=== PATIENT | female | born 1940 | race Caucasian/White ===

== ENCOUNTER 2017-01-26 08:15 | Outpatient (CLI) | payer MEDICARE, BC ==
[2017-01-26 19:45] LABS: BASOPHILS # (AUTO) 0.1 10^3/uL (0.0-0.1); BASOPHILS % (AUTO) 1.8 %; EOSINOPHILS # (AUTO) 0.2 10^3/uL (0.0-0.7); EOSINOPHILS % (AUTO) 3.7 %; HCT - HEMATOCRIT 39.7 % (37.0-47.0); HGB - HEMOGLOBIN 13.3 g/dL (12.0-16.0); LYMPHOCYTES # (AUTO) 1.7 10^3/uL (1.5-3.5); LYMPHOCYTES % (AUTO) 27.8 %; MEAN CORPUSCULAR HEMOGLOBIN 31.7 pg (27.0-31.0); MEAN CORPUSCULAR HGB CONC 33.4 g/dL (32.0-36.0); MEAN PLATELET VOLUME 8.9 fL (7.9-10.8); MONOCYTES # (AUTO) 0.5 10^3/uL (0.0-1.0); MONOCYTES % (AUTO) 7.7 %; NEUTROPHILS # (AUTO) 3.5 10^3/uL (1.5-6.6); NUCLEATED RED BLOOD CELLS AUTO 0.1 /100WBC; RED BLOOD COUNT 4.18 10^6/uL (4.20-5.40); RED CELL DISTRIBUTION WIDTH 12.8 % (12.0-15.0)
[2017-01-26 20:03] LABS: ALBUMIN/GLOBULIN RATIO 1.4 (1.0-2.2); BILIRUBIN,TOTAL 0.8 mg/dL (0.2-1.0); BUN - BLOOD UREA NITROGEN 17 mg/dL (6-20); CARBON DIOXIDE - CO2 28 mmol/L (21-32); CHLORIDE 101 mmol/L (101-111); CHOL/HDL RATIO 4.1 (<4.4); CHOLESTEROL 199 mg/dL; CREATININE 0.8 mg/dL (0.4-1.0); GFR - MDRD 69 (>89); GLUCOSE 87 mg/dL (70-100); HDL CHOLESTEROL 49 mg/dL; LDL/HDL RATIO 2.7 (<4.4); SODIUM 137 mmol/L (135-145); TOTAL PROTEIN 6.7 g/dL (6.7-8.2); TRIGLYCERIDES 99 mg/dL; VLDL CHOLESTEROL 20 mg/dL
== END 2017-01-26 08:16 | disposition home or self-care (01) ==
LOC: LAB.F 08:15
PROVIDERS: ATTEND Family Medicine
DX: I10 Essential (primary) hypertension (principal)
CPT/HCPCS: 36415; 80053; 80061; 82306; 84443; 85025

== ENCOUNTER 2017-02-02 10:57 | Outpatient (CLI) | payer MEDICARE, BC ==
--- NOTE | 2017-02-03 10:28 | Mammography Report ---
DIGITAL BILATERAL SCREENING MAMMOGRAM: 02/02/2017 CLINICAL HISTORY: A 76-year-old female in for routine screening mammogram. Patient has no family hi story of breast cancer. Patient did have some breast surgeries. She had two biopsies in . COMPARISON: 05/02/2008, 05/03/2009, 05/23/2010, 03/24/2013, 09/04/2014 TECHNIQUE: Craniocaudad and oblique lateral views of each breast were obtained with [employer] digital mammography. FINDINGS: Breasts are almost entirely composed of fat. No significant clusters of calcification are seen. No significant masses are noted. No change is seen. IMPRESSION: BREASTS APPEAR RADIOGRAPHICALLY BENIGN. BIRADS CATEGORY 1 - NEGATIVE. RECOMMENDATIONS: Annual bilateral screening mammography. STANDARD QUALIFYING STATEMENTS 1. This examination was reviewed with the aid of Computer-Aided Detection (CAD). 2. A negative or benign imaging report should not delay biopsy if clinically suspicious findings are present. Consider surgical consultation if warranted. More than 5% of cancers are not identified by i maging. 3. Dense breasts may obscure an underlying neoplasm. JOB #: [id number] EXT JOB #:[id number]
== END 2017-02-02 10:58 | disposition home or self-care (01) ==
LOC: DI.S 10:57
PROVIDERS: ATTEND Family Medicine
DX: Z12.31 Encounter for screening mammogram for malignant neoplasm of breast (principal)
CPT/HCPCS: 77067

== ENCOUNTER 2018-02-11 09:10 | Outpatient (CLI) | payer MEDICARE, BC ==
[2018-02-11 17:34] LABS: BASOPHILS # (AUTO) 0.1 10^3/uL (0.0-0.1); BASOPHILS % (AUTO) 1.9 %; EOSINOPHILS # (AUTO) 0.1 10^3/uL (0.0-0.7); EOSINOPHILS % (AUTO) 3.3 %; HGB - HEMOGLOBIN 13.4 g/dL (12.0-16.0); LYMPHOCYTES # (AUTO) 1.5 10^3/uL (1.5-3.5); LYMPHOCYTES % (AUTO) 33.6 %; MEAN CORPUSCULAR HEMOGLOBIN 31.8 pg (27.0-31.0); MEAN CORPUSCULAR HGB CONC 32.7 g/dL (32.0-36.0); MEAN CORPUSCULAR VOLUME 97.3 fL (81.0-99.0); MEAN PLATELET VOLUME 9.4 fL (7.9-10.8); MONOCYTES # (AUTO) 0.4 10^3/uL (0.0-1.0); MONOCYTES % (AUTO) 8.7 %; NEUTROPHILS # (AUTO) 2.3 10^3/uL (1.5-6.6); NEUTROPHILS % (AUTO) 52.5 %; PLT - PLATELET COUNT 206 10^3/uL (130-450); RED BLOOD COUNT 4.21 10^6/uL (4.20-5.40); RED CELL DISTRIBUTION WIDTH 13.5 % (12.0-15.0); WHITE BLOOD COUNT 4.4 x10^3/uL (4.8-10.8)
[2018-02-11 18:11] LABS: ALBUMIN 3.9 g/dL (3.2-5.5); ALBUMIN/GLOBULIN RATIO 1.2 (1.0-2.2); ALKALINE PHOSPHATASE 56 IU/L (42-121); ALT ALANINE AMINOTRANSFERASE 18 IU/L (10-60); AST ASPARTATE AMINOTRANSFERASE 24 IU/L (10-42); BUN - BLOOD UREA NITROGEN 22 mg/dL (6-20); CALCIUM 9.4 mg/dL (8.5-10.3); CARBON DIOXIDE - CO2 29 mmol/L (21-32); CHLORIDE 103 mmol/L (101-111); CHOL/HDL RATIO 3.7 (<4.4); CHOLESTEROL 208 mg/dL; CREATININE 0.8 mg/dL (0.4-1.0); GFR - MDRD 69 (>89); GLUCOSE 90 mg/dL (70-100); HDL CHOLESTEROL 56 mg/dL; LDL CHOLESTEROL,CALCULATED 138 mg/dL; LDL/HDL RATIO 2.5 (<4.4); SODIUM 140 mmol/L (135-145); TOTAL PROTEIN 7.1 g/dL (6.7-8.2); VLDL CHOLESTEROL 14 mg/dL
== END 2018-02-11 09:11 | disposition home or self-care (01) ==
LOC: LAB.F 09:10
PROVIDERS: ATTEND Family Medicine
DX: I10 Essential (primary) hypertension (principal); E78.5 Hyperlipidemia, unspecified; N39.0 Urinary tract infection, site not specified
CPT/HCPCS: 36415; 80053; 80061; 83721; 84443; 85025

== ENCOUNTER 2018-04-12 08:00 | Outpatient (CLI) | payer MEDICARE, BC ==
[2018-04-12 18:27] LABS: CREATININE 0.8 mg/dL (0.4-1.0)
== END 2018-04-12 08:01 | disposition home or self-care (01) ==
LOC: LAB.F 08:00
PROVIDERS: ATTEND Physician Assistant Medical
DX: B35.1 Tinea unguium (principal); Z79.899 Other long term (current) drug therapy
CPT/HCPCS: 36415; 82565; 84450; 84460

== ENCOUNTER 2018-05-26 11:37 | Outpatient (CLI) | payer MEDICARE, BC ==
[2018-05-26 18:04] LABS: CREATININE 0.8 mg/dL (0.4-1.0)
== END 2018-05-26 11:38 | disposition home or self-care (01) ==
LOC: LAB.F 11:37
PROVIDERS: ATTEND Physician Assistant Medical
DX: B35.1 Tinea unguium (principal); Z79.899 Other long term (current) drug therapy
CPT/HCPCS: 36415; 82565; 84450; 84460

== ENCOUNTER 2018-07-30 09:59 | Outpatient (CLI) | payer MEDICARE, BC ==
[2018-07-30 18:18] LABS: CREATININE 0.8 mg/dL (0.4-1.0)
== END 2018-07-30 10:00 | disposition home or self-care (01) ==
LOC: LAB.F 09:59
PROVIDERS: ATTEND Physician Assistant Medical
DX: B35.1 Tinea unguium (principal); Z79.899 Other long term (current) drug therapy
CPT/HCPCS: 36415; 82565; 84450; 84460

== ENCOUNTER 2019-01-19 08:34 | Outpatient (CLI) | payer MEDICARE, BC ==
[2019-01-19 17:52] LABS: BASOPHILS # (AUTO) 0.1 10^3/uL (0.0-0.1); BASOPHILS % (AUTO) 1.2 %; EOSINOPHILS # (AUTO) 0.2 10^3/uL (0.0-0.7); EOSINOPHILS % (AUTO) 3.9 %; HGB - HEMOGLOBIN 13.3 g/dL (12.0-16.0); LYMPHOCYTES # (AUTO) 1.5 10^3/uL (1.5-3.5); LYMPHOCYTES % (AUTO) 25.7 %; MEAN CORPUSCULAR HEMOGLOBIN 31.9 pg (27.0-31.0); MEAN CORPUSCULAR HGB CONC 32.4 g/dL (32.0-36.0); MEAN CORPUSCULAR VOLUME 98.6 fL (81.0-99.0); MEAN PLATELET VOLUME 11.1 fL (7.9-10.8); MONOCYTES # (AUTO) 0.5 10^3/uL (0.0-1.0); MONOCYTES % (AUTO) 9.5 %; NEUTROPHILS # (AUTO) 3.4 10^3/uL (1.5-6.6); NEUTROPHILS % (AUTO) 59.3 %; PLT - PLATELET COUNT 227 10^3/uL (130-450); RED BLOOD COUNT 4.17 10^6/uL (4.20-5.40); RED CELL DISTRIBUTION WIDTH 12.9 % (12.0-15.0); WHITE BLOOD COUNT 5.7 x10^3/uL (4.8-10.8)
[2019-01-19 18:26] LABS: ALBUMIN/GLOBULIN RATIO 1.3 (1.0-2.2); ALKALINE PHOSPHATASE 57 IU/L (42-121); ALT ALANINE AMINOTRANSFERASE 15 IU/L (10-60); AST ASPARTATE AMINOTRANSFERASE 19 IU/L (10-42); BILIRUBIN,TOTAL 0.9 mg/dL (0.2-1.0); BUN - BLOOD UREA NITROGEN 21 mg/dL (6-20); CALCIUM 9.1 mg/dL (8.5-10.3); CARBON DIOXIDE - CO2 28 mmol/L (21-32); CHLORIDE 103 mmol/L (101-111); CHOL/HDL RATIO 4.1 (<4.4); CHOLESTEROL 209 mg/dL; CREATININE 0.7 mg/dL (0.4-1.0); GFR - MDRD 81 (>89); GLUCOSE 91 mg/dL (70-100); HDL CHOLESTEROL 51 mg/dL; LDL CHOLESTEROL,CALCULATED 137 mg/dL; LDL/HDL RATIO 2.7 (<4.4); SODIUM 142 mmol/L (135-145); TOTAL PROTEIN 7.1 g/dL (6.7-8.2); VLDL CHOLESTEROL 21 mg/dL
== END 2019-01-19 08:35 | disposition home or self-care (01) ==
LOC: LAB.S 08:34
PROVIDERS: ATTEND Physician Assistant Medical
DX: I10 Essential (primary) hypertension (principal); E78.5 Hyperlipidemia, unspecified
CPT/HCPCS: 36415; 80053; 80061; 83721; 85025

== ENCOUNTER 2019-07-27 09:51 | Outpatient (CLI) | payer MEDICARE, BC ==
[2019-07-27 17:33] LABS: HB2 TOTAL 12.5 g/dL; HEMOGLOBIN A1C 0.38 g/dL; HEMOGLOBIN A1C % 4.9 % (4.6-6.2)
== END 2019-07-27 09:52 | disposition home or self-care (01) ==
LOC: LAB.S 09:51
PROVIDERS: ATTEND Physician Assistant Medical
DX: R82.90 Unspecified abnormal findings in urine (principal); Z86.39 Personal history of other endocrine, nutritional and metabolic disease
CPT/HCPCS: 36415; 81001; 83036

== ENCOUNTER 2020-06-28 13:50 | Outpatient (CLI) | payer MEDICARE, BC ==
--- NOTE | 2020-06-28 16:09 | Ultrasound Report ---
PROCEDURE: Carotid Doppler Complete INDICATIONS: DIZZINESS TECHNIQUE: Color and pulse Doppler interrogation was performed of both carotid systems, with image documentation and velocity measurements. COMPARISON: None. FINDINGS: Right side: Common carotid artery peak systolic velocity: 60 cm/sec. Internal carotid artery peak systolic velocity: 56 cm/sec. Internal carotid artery end diastolic velocity: 20 cm/sec. External carotid artery peak systolic velocity: 56 cm/sec. ICA/CCA peak systolic ratio: 0.9 . Olivera scale imaging description: Tortuous bilateral carotids with no significant plaque identified. Percent internal carotid artery stenosis: Normal with no appreciable stenosis . Vertebral artery: Flow direction is antegrade. Left side: Common carotid artery peak systolic velocity: 49 cm/sec. Internal carotid artery peak systolic velocity: 58 cm/sec. Internal carotid artery end diastolic velocity: 20 cm/sec. External carotid artery peak systolic velocity: 42 cm/sec. ICA/CCA peak systolic ratio: 1.2 . Olivera scale imaging description: Torturous bilateral carotids with no significant plaque identified. Percent internal carotid artery stenosis: Normal with no appreciable stenosis . Vertebral artery: Flow direction is antegrade. IMPRESSION: No carotid stenosis demonstrated. The estimate of stenosis included in the report of the imaging study was calculated using the NASCET method Reviewed by: Jac Lynn MD on 06/28/2020 4:07 PM PST Approved by: Jac Lynn MD on 06/28/2020 4:07 PM PST Station ID: [id number]
== END 2020-06-28 13:51 | disposition home or self-care (01) ==
LOC: DI 13:50
PROVIDERS: ATTEND Internal Medicine
DX: R42 Dizziness and giddiness (principal)
CPT/HCPCS: 93880

== ENCOUNTER 2020-07-30 10:16 | Outpatient (CLI) | payer MEDICARE, BC ==
[2020-07-30 15:51] LABS: BASOPHILS # (AUTO) 0.1 10^3/uL (0.0-0.1); BASOPHILS % (AUTO) 1.6 %; EOSINOPHILS # (AUTO) 0.2 10^3/uL (0.0-0.7); EOSINOPHILS % (AUTO) 3.4 %; LYMPHOCYTES # (AUTO) 1.3 10^3/uL (1.5-3.5); LYMPHOCYTES % (AUTO) 29.9 %; MEAN CORPUSCULAR HEMOGLOBIN 32.4 pg (27.0-31.0); MEAN CORPUSCULAR HGB CONC 32.7 g/dL (32.0-36.0); MEAN PLATELET VOLUME 10.4 fL (7.9-10.8); MONOCYTES # (AUTO) 0.6 10^3/uL (0.0-1.0); MONOCYTES % (AUTO) 12.9 %; NEUTROPHILS # (AUTO) 2.3 10^3/uL (1.5-6.6); PLT - PLATELET COUNT 229 10^3/uL (130-450); RED BLOOD COUNT 4.01 10^6/uL (4.20-5.40); RED CELL DISTRIBUTION WIDTH 12.3 % (12.0-15.0); WHITE BLOOD COUNT 4.4 x10^3/uL (4.8-10.8)
[2020-07-30 16:21] LABS: ALBUMIN 4.4 g/dL (3.2-5.5); ALBUMIN/GLOBULIN RATIO 1.5 (1.0-2.2); ALKALINE PHOSPHATASE 50 IU/L (42-121); ALT ALANINE AMINOTRANSFERASE 27 IU/L (10-60); AST ASPARTATE AMINOTRANSFERASE 22 IU/L (10-42); BUN - BLOOD UREA NITROGEN 22 mg/dL (6-20); CALCIUM 9.5 mg/dL (8.5-10.3); CARBON DIOXIDE - CO2 27 mmol/L (21-32); CHLORIDE 104 mmol/L (101-111); CHOL/HDL RATIO 4.9 (<4.4); CHOLESTEROL 244 mg/dL; CREATININE 1.1 mg/dL (0.4-1.0); GLUCOSE 93 mg/dL (70-100); HDL CHOLESTEROL 50 mg/dL; LDL CHOLESTEROL,CALCULATED 167 mg/dL; LDL/HDL RATIO 3.3 (<4.4); SODIUM 139 mmol/L (135-145); TOTAL PROTEIN 7.3 g/dL (6.7-8.2); VLDL CHOLESTEROL 27 mg/dL
== END 2020-07-30 10:17 | disposition home or self-care (01) ==
LOC: LAB.S 10:16
PROVIDERS: ATTEND Internal Medicine
DX: I10 Essential (primary) hypertension (principal)
CPT/HCPCS: 36415; 80053; 80061; 83721; 85025

== ENCOUNTER 2021-01-30 09:29 | Outpatient (CLI) | payer MEDICARE, BC ==
[2021-01-30 15:34] LABS: BASOPHILS # (AUTO) 0.1 10^3/uL (0.0-0.1); BASOPHILS % (AUTO) 1.1 %; EOSINOPHILS # (AUTO) 0.1 10^3/uL (0.0-0.7); EOSINOPHILS % (AUTO) 2.3 %; HCT - HEMATOCRIT 39.8 % (37.0-47.0); LYMPHOCYTES # (AUTO) 1.5 10^3/uL (1.5-3.5); LYMPHOCYTES % (AUTO) 33.3 %; MEAN CORPUSCULAR HEMOGLOBIN 32.4 pg (27.0-31.0); MEAN CORPUSCULAR HGB CONC 32.7 g/dL (32.0-36.0); MEAN CORPUSCULAR VOLUME 99.3 fL (81.0-99.0); MEAN PLATELET VOLUME 10.9 fL (7.9-10.8); MONOCYTES # (AUTO) 0.5 10^3/uL (0.0-1.0); MONOCYTES % (AUTO) 11.8 %; NEUTROPHILS # (AUTO) 2.2 10^3/uL (1.5-6.6); PLT - PLATELET COUNT 222 10^3/uL (130-450); RED BLOOD COUNT 4.01 10^6/uL (4.20-5.40); RED CELL DISTRIBUTION WIDTH 12.4 % (12.0-15.0); WHITE BLOOD COUNT 4.4 x10^3/uL (4.8-10.8)
[2021-01-30 15:39] LABS: ALBUMIN 4.5 g/dL (3.2-5.5); ALBUMIN/GLOBULIN RATIO 1.6 (1.0-2.2); BILIRUBIN,TOTAL 1.2 mg/dL (0.2-1.0); CALCIUM 8.9 mg/dL (8.5-10.3); CREATININE 0.9 mg/dL (0.4-1.0); POTASSIUM 3.6 mmol/L (3.5-5.0); TOTAL PROTEIN 7.4 g/dL (6.7-8.2)
== END 2021-01-30 09:30 | disposition home or self-care (01) ==
LOC: LAB.S 09:29
PROVIDERS: ATTEND Internal Medicine
DX: I12.9 Hypertensive chronic kidney disease with stage 1 through stage 4 chronic kidney disease, or unspecified chronic kidney disease (principal); N18.1 Chronic kidney disease, stage 1
CPT/HCPCS: 36415; 80053; 85025

== ENCOUNTER 2021-08-07 10:11 | Outpatient (CLI) | payer MEDICARE, BC ==
[2021-08-07 15:11] LABS: BASOPHILS # (AUTO) 0.1 10^3/uL (0.0-0.1); BASOPHILS % (AUTO) 1.2 %; EOSINOPHILS # (AUTO) 0.2 10^3/uL (0.0-0.7); EOSINOPHILS % (AUTO) 3.2 %; HCT - HEMATOCRIT 39.6 % (37.0-47.0); HGB - HEMOGLOBIN 13.1 g/dL (12.0-16.0); LYMPHOCYTES # (AUTO) 1.8 10^3/uL (1.5-3.5); LYMPHOCYTES % (AUTO) 31.2 %; MEAN CORPUSCULAR HEMOGLOBIN 32.8 pg (27.0-31.0); MEAN CORPUSCULAR HGB CONC 33.1 g/dL (32.0-36.0); MEAN PLATELET VOLUME 11.3 fL (7.9-10.8); MONOCYTES # (AUTO) 0.5 10^3/uL (0.0-1.0); MONOCYTES % (AUTO) 8.9 %; NEUTROPHILS # (AUTO) 3.2 10^3/uL (1.5-6.6); NEUTROPHILS % (AUTO) 55.2 %; PLT - PLATELET COUNT 213 10^3/uL (130-450); RED CELL DISTRIBUTION WIDTH 12.1 % (12.0-15.0); WHITE BLOOD COUNT 5.9 x10^3/uL (4.8-10.8)
[2021-08-07 17:15] LABS: ALBUMIN 4.2 g/dL (3.2-5.5); ALBUMIN/GLOBULIN RATIO 1.3 (1.0-2.2); ALKALINE PHOSPHATASE 51 IU/L (42-121); ALT ALANINE AMINOTRANSFERASE 27 IU/L (10-60); AST ASPARTATE AMINOTRANSFERASE 24 IU/L (10-42); BILIRUBIN,TOTAL 0.9 mg/dL (0.2-1.0); BUN - BLOOD UREA NITROGEN 21 mg/dL (6-20); CALCIUM 9.3 mg/dL (8.5-10.3); CARBON DIOXIDE - CO2 30 mmol/L (21-32); CHLORIDE 100 mmol/L (101-111); CHOL/HDL RATIO 4.6 (<4.4); CHOLESTEROL 226 mg/dL; CREATININE 0.9 mg/dL (0.4-1.0); GFR - MDRD 60 (>89); GLUCOSE 89 mg/dL (70-100); HDL CHOLESTEROL 49 mg/dL; LDL CHOLESTEROL,CALCULATED 147 mg/dL; POTASSIUM 3.9 mmol/L (3.5-5.0); SODIUM 138 mmol/L (135-145); TOTAL PROTEIN 7.4 g/dL (6.7-8.2); TRIGLYCERIDES 151 mg/dL; VLDL CHOLESTEROL 30 mg/dL
== END 2021-08-07 10:12 | disposition home or self-care (01) ==
LOC: LAB.S 10:11
PROVIDERS: ATTEND Internal Medicine
DX: I10 Essential (primary) hypertension (principal); Z13.220 Encounter for screening for lipoid disorders
CPT/HCPCS: 36415; 80053; 80061; 83721; 85025

== ENCOUNTER 2021-11-20 08:40 | Outpatient (CLI) | payer MEDICARE, BC | END 2021-11-20 08:41 | disposition short-term general hospital (02) | LOC: EMS 08:40 | DX: S09.90XA Unspecified injury of head, initial encounter (principal); V03.10XA Pedestrian on foot injured in collision with car, pick-up truck or van in traffic accident, initial encounter; Y93.01 Activity, walking, marching and hiking; Y92.89 Other specified places as the place of occurrence of the external cause | CPT/HCPCS: A0425; A0427 ==

== ENCOUNTER 2022-07-31 09:13 | Outpatient (CLI) | payer MEDICARE, BC ==
[2022-07-31 14:21] LABS: BASOPHILS # (AUTO) 0.1 10^3/uL (0.0-0.1); BASOPHILS % (AUTO) 1.6 %; EOSINOPHILS # (AUTO) 0.2 10^3/uL (0.0-0.7); EOSINOPHILS % (AUTO) 3.8 %; HCT - HEMATOCRIT 39.9 % (37.0-47.0); HGB - HEMOGLOBIN 12.9 g/dL (12.0-16.0); LYMPHOCYTES # (AUTO) 1.9 10^3/uL (1.5-3.5); LYMPHOCYTES % (AUTO) 37.1 %; MEAN CORPUSCULAR HEMOGLOBIN 32.3 pg (27.0-31.0); MEAN CORPUSCULAR HGB CONC 32.3 g/dL (32.0-36.0); MEAN CORPUSCULAR VOLUME 99.8 fL (81.0-99.0); MEAN PLATELET VOLUME 10.9 fL (7.9-10.8); MONOCYTES # (AUTO) 0.5 10^3/uL (0.0-1.0); MONOCYTES % (AUTO) 10.6 %; NEUTROPHILS # (AUTO) 2.3 10^3/uL (1.5-6.6); NEUTROPHILS % (AUTO) 46.3 %; PLT - PLATELET COUNT 272 10^3/uL (130-450); RED CELL DISTRIBUTION WIDTH 11.5 % (12.0-15.0)
[2022-07-31 14:50] LABS: THYROID STIMULATING HORMONE 1.6 uIU/mL (0.34-5.60)
[2022-07-31 15:18] LABS: ALBUMIN 4.2 g/dL (3.2-5.5); ALBUMIN/GLOBULIN RATIO 1.2 (1.0-2.2); ALKALINE PHOSPHATASE 60 IU/L (42-121); ALT ALANINE AMINOTRANSFERASE 34 IU/L (10-60); AST ASPARTATE AMINOTRANSFERASE 27 IU/L (10-42); BILIRUBIN,TOTAL 0.7 mg/dL (0.2-1.0); BUN - BLOOD UREA NITROGEN 22 mg/dL (6-20); CALCIUM 10.1 mg/dL (8.5-10.3); CARBON DIOXIDE - CO2 29 mmol/L (21-32); CHLORIDE 104 mmol/L (101-111); CHOLESTEROL 211 mg/dL; GFR - MDRD 53 (>89); GLUCOSE 95 mg/dL (70-100); HDL CHOLESTEROL 42 mg/dL; LDL CHOLESTEROL,CALCULATED 144 mg/dL; LDL/HDL RATIO 3.4 (<4.4); POTASSIUM 3.8 mmol/L (3.5-5.0); SODIUM 141 mmol/L (135-145); TOTAL PROTEIN 7.6 g/dL (6.7-8.2); TRIGLYCERIDES 124 mg/dL; VLDL CHOLESTEROL 25 mg/dL
== END 2022-07-31 09:14 | disposition home or self-care (01) ==
LOC: LAB.S 09:13
PROVIDERS: ATTEND Registered Nurse
DX: I10 Essential (primary) hypertension (principal); E78.5 Hyperlipidemia, unspecified; Z13.29 Encounter for screening for other suspected endocrine disorder
CPT/HCPCS: 36415; 80053; 80061; 83721; 84443; 85025

== ENCOUNTER 2023-09-30 09:05 | Outpatient (CLI) | payer MEDICARE, BC ==
[2023-09-30 14:54] LABS: BASOPHILS # (AUTO) 0.1 10^3/uL (0.0-0.1); BASOPHILS % (AUTO) 1.2 %; EOSINOPHILS # (AUTO) 0.1 10^3/uL (0.0-0.7); LYMPHOCYTES # (AUTO) 1.7 10^3/uL (1.5-3.5); LYMPHOCYTES % (AUTO) 40.9 %; MEAN CORPUSCULAR HEMOGLOBIN 31.9 pg (27.0-31.0); MEAN CORPUSCULAR HGB CONC 32.5 g/dL (32.0-36.0); MEAN CORPUSCULAR VOLUME 98.3 fL (81.0-99.0); MEAN PLATELET VOLUME 10.8 fL (7.9-10.8); MONOCYTES # (AUTO) 0.6 10^3/uL (0.0-1.0); MONOCYTES % (AUTO) 13.8 %; NEUTROPHILS # (AUTO) 1.7 10^3/uL (1.5-6.6); NEUTROPHILS % (AUTO) 40.6 %; PLT - PLATELET COUNT 211 10^3/uL (130-450); RED BLOOD COUNT 4.07 10^6/uL (4.20-5.40); RED CELL DISTRIBUTION WIDTH 12.2 % (12.0-15.0); WHITE BLOOD COUNT 4.1 x10^3/uL (4.8-10.8)
[2023-09-30 15:27] LABS: ALBUMIN 4.2 g/dL (3.2-5.5); ALBUMIN/GLOBULIN RATIO 1.6 (1.0-2.2); ALKALINE PHOSPHATASE 59 IU/L (42-121); ALT ALANINE AMINOTRANSFERASE 25 IU/L (10-60); AST ASPARTATE AMINOTRANSFERASE 22 IU/L (10-42); BILIRUBIN,TOTAL 0.9 mg/dL (0.2-1.0); BUN - BLOOD UREA NITROGEN 17 mg/dL (6-20); CARBON DIOXIDE - CO2 33 mmol/L (21-32); CHLORIDE 104 mmol/L (101-111); CHOL/HDL RATIO 4.1 (<4.4); CHOLESTEROL 229 mg/dL; CREATININE 0.8 mg/dL (0.6-1.3); GFR - MDRD 68 (>89); GLUCOSE 86 mg/dL (74-104); HDL CHOLESTEROL 56 mg/dL; LDL CHOLESTEROL,CALCULATED 137 mg/dL; LDL/HDL RATIO 2.4 (<4.4); POTASSIUM 3.8 mmol/L (3.5-4.5); SODIUM 140 mmol/L (135-145); TOTAL PROTEIN 6.9 g/dL (6.4-8.9); TRIGLYCERIDES 180 mg/dL (48-352); VLDL CHOLESTEROL 36 mg/dL
[2023-09-30 15:41] LABS: THYROID STIMULATING HORMONE 1.92 uIU/mL (0.34-5.60)
== END 2023-09-30 09:06 | disposition home or self-care (01) ==
LOC: LAB.S 09:05
PROVIDERS: ATTEND Registered Nurse
DX: I10 Essential (primary) hypertension (principal); Z13.228 Encounter for screening for other metabolic disorders; Z13.220 Encounter for screening for lipoid disorders; Z13.29 Encounter for screening for other suspected endocrine disorder; Z13.0 Encounter for screening for diseases of the blood and blood-forming organs and certain disorders involving the immune mechanism
CPT/HCPCS: 36415; 80053; 80061; 83721; 84443; 85025

== ENCOUNTER 2024-01-02 07:32 | Outpatient (CLI) | payer MEDICARE, BC | END 2024-01-02 23:59 | disposition critical access hospital (66) | LOC: EMS 07:32 | DX: R11.2 Nausea with vomiting, unspecified (principal); R53.1 Weakness | CPT/HCPCS: A0425; A0429 ==

== ENCOUNTER 2024-01-02 07:56 | Observation (INO) | payer MEDICARE, BC ==
[2024-01-02] MEDS: SODIUM CHLORIDE 0.9% 1,000 ML IV STA (08:13)
[2024-01-02] MEDS: ONDANSETRON 4 MG/2 ML VIAL IVP STA (08:14)
--- NOTE | 2024-01-02 08:16 | ED Physician Documentation ---
History of Present Illness - Stated complaint Stated Complaint: GEN ILLNESS - Chief complaint Chief Complaint: Abd Pain - History obtained from History obtained from: Patient, EMS - History of Present Illness Timing: How many days ago (3) Pain level max: 5 Pain level now: 0 - Additonal information Additional information: 83-year-old female presents to the emergency department stating that she has had nausea and vomiting for the past 3 days. She states that she did have abdominal pain a few days ago, but that has since resolved, it was crampy in nature, generalized. No urinary symptoms. No fevers. No chills. She states she was exposed to COVID approximately 10 days ago but only developed a slight cough this morning. She states that she just felt too weak to stand this morning so she called the ambulance to bring her to the hospital. History of hypertension, glaucoma. Denies any intra-abdominal surgeries in the past. No recent travel. No recent antibiotics. Review of Systems Constitutional: denies: Fever, Chills Nose: denies: Rhinorrhea / runny nose, Congestion Respiratory: reports: Cough (dry, started today) GI: reports: Nausea, Vomiting. denies: Constipation, Diarrhea, Hematemesis, Bloody / black stool : denies: Dysuria, Frequency, Hesitancy Musculoskeletal: denies: Neck pain, Back pain Neurologic: denies: Headache PD PAST MEDICAL HISTORY - Past Medical History Past Medical History: Yes Cardiovascular: Hypertension, Murmur Respiratory: None Neuro: Head injury Endocrine/Autoimmune: HyPOthyroidism GI: None ADA ACCOMMODATION CONSULTANT: None : None HEENT: Glaucoma, Other Psych: Depression Musculoskeletal: None Derm: None - Past Surgical History Past Surgical History: Yes General: Other /ADA ACCOMMODATION CONSULTANT: Hysterectomy HEENT: Other - Present Medications Home Medications: Ambulatory Orders Medication Instructions Recorded Confirmed Aspirin [Aspir 81] 81 mg PO DAILY 01/11/14 01/02/24 Hydroxyzine HCl 10 mg ORAL HS 01/11/14 01/02/24 Triamterene/Hydrochlorothiazid 37.5 mg ORAL DAILY 01/11/14 01/02/24 [Triamterene-Hctz 37.5-25 mg Cp] Latanoprost 0.005% Ophth Drops 1 drops OP DAILY PM 01/02/24 01/02/24 [Xalatan Ophth Drops] timoloL 0.5% OPHTH DROPS(10ML) 0 drops OP BID 01/02/24 01/02/24 [Timoptic 0.5% Ophth Drops] - Allergies Allergies/Adverse Reactions: Allergies Allergy/AdvReac Type Severity Reaction Status Date / Time No Known Drug Allergies Allergy Verified 01/02/24 08:02 - Living Situation Living Situation: reports: Alone Living Arrangement: reports: At home - Social History Does the pt smoke?: No Smoking Status: Never smoker Does the pt drink ETOH?: Yes Does the pt have substance abuse?: No - Immunizations Immunizations are current?: Yes - POLST Patient has POLST: No PD ED PE NORMAL - Vitals Vital signs reviewed: Yes - General General: Alert and oriented X 3, No acute distress, Well developed/nourished - HEENT HEENT: PERRL, Moist mucous membranes - Neck Neck: Supple, no meningeal sign - Cardiac Cardiac: RRR, Strong equal pulses - Respiratory Respiratory: No respiratory distress, Clear bilaterally - Abdomen Abdomen: Soft, Non tender, Non distended - Back Back: No CVA TTP, No spinal TTP - Derm Derm: Warm and dry - Extremities Extremities: No edema, No calf tenderness / cord - Neuro Neuro: Alert and oriented X 3 - Psych Psych: Normal mood, Normal affect Results - Vitals Vitals: Vital Signs - 24 hr 01/02/24 01/02/24 01/02/24 08:03 08:29 10:20 Temperature 36.7 C Heart Rate 84 85 81 Respiratory 18 16 16 Rate Blood Pressure 130/62 140/82 H 148/67 H O2 Saturation 100 97 98 Oxygen O2 Source Room air - EKG (time done) 1045 EKG releavant findings:: EKG personally interpreted by author of this note. Relevant findings are: Rate: Rate (enter#) (78) Rhythm: NSR [place]: Normal Intervals: Normal [place] QRS: Normal Ischemia: Normal ST segments - Labs Labs: Laboratory Tests 01/02/24 01/02/24 01/02/24 08:13 08:13 08:15 WBC 9.0 RBC 4.21 Hgb 13.7 Hct 40.7 MCV 96.7 MCH 32.5 H MCHC 33.7 RDW 12.2 Plt Count 210 MPV 9.9 Neut # (Auto) 6.5 Lymph # (Auto) 1.4 L [place] # (Auto) 1.0 Eos # (Auto) 0.0 Baso # (Auto) 0.0 Absolute Nucleated RBC 0.00 Nucleated RBC % 0.0 Sodium 142 Potassium 3.5 Chloride 102 Carbon Dioxide 30 Anion Gap 10.0 BUN 18 Creatinine 0.9 Estimated GFR (MDRD) 60 L Glucose 99 Lactic Acid Calcium 10.1 Phosphorus 3.4 Magnesium 1.9 Total Bilirubin 1.0 AST 16 ALT 13 Alkaline Phosphatase 48 Total Protein 7.1 Albumin 4.4 Globulin 2.7 Albumin/Globulin Ratio 1.6 Lipase 16 Urine Color Urine Clarity Urine pH Ur Specific [place] Urine Protein Urine Glucose (UA) Urine Ketones Urine Occult Blood Urine Nitrite Urine Bilirubin Urine Urobilinogen Ur Leukocyte Esterase Urine RBC Urine WBC Ur Squamous Epith Cells Urine Bacteria Ur Microscopic Review Urine Culture Comments Nasal Adenovirus (PCR) NOT DETECTED Nasal B. parapertussis DNA (PCR) NOT DETECTED Nasal Coronavir 229E PCR NOT DETECTED Nasal Coronavir HKU1 PCR NOT DETECTED Nasal Coronavir NL63 PCR NOT DETECTED Nasal Coronavir OC43 PCR NOT DETECTED Nasal Enterovir/Rhinovir PCR NOT DETECTED Nasal Influenza B PCR NOT DETECTED Nasal Influenza A PCR NOT DETECTED Nasal Parainfluen 1 PCR NOT DETECTED Nasal Parainfluen 2 PCR NOT DETECTED Nasal Parainfluen 3 PCR NOT DETECTED Nasal Parainfluen 4 PCR NOT DETECTED Nasal RSV (PCR) NOT DETECTED Nasal B.pertussis DNA PCR NOT DETECTED Nasal C.pneumoniae (PCR) NOT DETECTED Dashawn Human Metapneumo PCR NOT DETECTED Nasal M.pneumoniae (PCR) NOT DETECTED Nasal SARS-CoV-2 (PCR) NOT DETECTED 01/02/24 01/02/24 08:15 09:37 WBC RBC Hgb Hct MCV MCH MCHC RDW Plt Count MPV Neut # (Auto) Lymph # (Auto) Mason # (Auto) Eos # (Auto) Baso # (Auto) Absolute Nucleated RBC Nucleated RBC % Sodium Potassium Chloride Carbon Dioxide Anion Gap BUN Creatinine Estimated GFR (MDRD) Glucose Lactic Acid 1.6 Calcium Phosphorus Magnesium Total Bilirubin AST ALT Alkaline Phosphatase Total Protein Albumin Globulin Albumin/Globulin Ratio Lipase Urine Color YELLOW Urine Clarity CLEAR Urine pH 6.0 Ur Specific [place] >=1.030 H Urine Protein NEGATIVE Urine Glucose (UA) NEGATIVE Urine Ketones 40 H Urine Occult Blood NEGATIVE Urine Nitrite NEGATIVE Urine Bilirubin MODERATE H Urine Urobilinogen 0.2 (NORMAL) Ur Leukocyte Esterase TRACE H Urine RBC None Seen Urine WBC 6-10 H Ur Squamous Epith Cells FEW Squamous Urine Bacteria Many H Ur Microscopic Review INDICATED Urine Culture Comments INDICATED Nasal Adenovirus (PCR) Nasal B. parapertussis DNA (PCR) Nasal Coronavir 229E PCR Nasal Coronavir HKU1 PCR Nasal Coronavir NL63 PCR Nasal Coronavir OC43 PCR Nasal Enterovir/Rhinovir PCR Nasal Influenza B PCR Nasal Influenza A PCR Nasal Parainfluen 1 PCR Nasal Parainfluen 2 PCR Nasal Parainfluen 3 PCR Nasal Parainfluen 4 PCR Nasal RSV (PCR) Nasal B.pertussis DNA PCR Nasal C.pneumoniae (PCR) Dashawn Human Metapneumo PCR Nasal M.pneumoniae (PCR) Nasal SARS-CoV-2 (PCR) - Rads (name of study) ct abd/pelvis Relevant Findings:: Final report received, See rad report PD Medical Decision Making - ED course Complexity details: reviewed results, re-evaluated patient, considered differential, d/w patient, d/w digital marketing consultant ED course: 83-year-old female with a right inguinal hernia causing small bowel obstruction. Very narrow neck. Attempted reduction x 2, unable to reduce. Consulted general surgery, Dr. Guzmán. Dr. Guzmán came and evaluated the patient, will take the patient to the OR for incarcerated hernia with bowel obstruction. Departure - Departure Disposition: ED Transfer to [facility] Clinical Impression: Small bowel obstruction, Inguinal hernia, incarcerated Condition: Stable
[2024-01-02 08:20] LABS: BASOPHILS % (AUTO) 0.3 %; EOSINOPHILS % (AUTO) 0.2 %; HCT - HEMATOCRIT 40.7 % (37.0-47.0); HGB - HEMOGLOBIN 13.7 g/dL (12.0-16.0); LYMPHOCYTES # (AUTO) 1.4 10^3/uL (1.5-3.5); LYMPHOCYTES % (AUTO) 15.4 %; MEAN CORPUSCULAR HEMOGLOBIN 32.5 pg (27.0-31.0); MEAN CORPUSCULAR HGB CONC 33.7 g/dL (32.0-36.0); MEAN CORPUSCULAR VOLUME 96.7 fL (81.0-99.0); MEAN PLATELET VOLUME 9.9 fL (7.9-10.8); MONOCYTES % (AUTO) 11.5 %; NEUTROPHILS # (AUTO) 6.5 10^3/uL (1.5-6.6); NEUTROPHILS % (AUTO) 72.2 %; PLT - PLATELET COUNT 210 10^3/uL (130-450); RED BLOOD COUNT 4.21 10^6/uL (4.20-5.40); RED CELL DISTRIBUTION WIDTH 12.2 % (12.0-15.0)
[2024-01-02 08:31] LABS: BILIRUBIN,URINE MODERATE (NEGATIVE); GLUCOSE, URINE (UA) NEGATIVE (NEGATIVE); KETONES,URINE (UA) 40 mg/dL (NEGATIVE); LEUKOCYTE ESTERASE, URINE TRACE (NEGATIVE); NITRITE,URINE NEGATIVE (NEGATIVE); OCCULT BLOOD,URINE NEGATIVE (NEGATIVE); PROTEIN,URINE NEGATIVE (NEGATIVE); UROBILINOGEN,URINE 0.2 (NORMAL) E.U./dL (NORMAL)
[2024-01-02 08:38] LABS: CLARITY,URINE CLEAR (CLEAR)
[2024-01-02 08:42] LABS: RBC,URINE None Seen /HPF (0-5)
[2024-01-02 08:43] LABS: BACTERIA,URINE Many /HPF (None Seen); SQUAMOUS EPITHELIAL CELL,UR FEW Squamous (<= Few)
[2024-01-02 08:45] LABS: ALBUMIN 4.4 g/dL (3.2-5.5); ALBUMIN/GLOBULIN RATIO 1.6 (1.0-2.2); CALCIUM 10.1 mg/dL (8.5-10.3); CREATININE 0.9 mg/dL (0.6-1.3); MAGNESIUM 1.9 mg/dL (1.7-2.3); PHOSPHORUS 3.4 mg/dL (2.5-5.0); POTASSIUM 3.5 mmol/L (3.5-4.5); TOTAL PROTEIN 7.1 g/dL (6.4-8.9)
[2024-01-02] MEDS ORDERED: iohexoL-300 100 ML VIAL ONE (08:54)
[2024-01-02 09:13] LABS: B. PARAPERTUSSIS- RESP PCR PAN NOT DETECTED; B. PERTUSSIS- RESP PCR PANEL NOT DETECTED; C. PNEUMONIAE- RESP PCR PANEL NOT DETECTED; CORONAVIRUS 229E-RESP PCR NOT DETECTED; CORONAVIRUS HKU1-RESP PCR NOT DETECTED; CORONAVIRUS NL63-RESP PCR NOT DETECTED; CORONAVIRUS OC43-RESP PCR NOT DETECTED; HUMAN METAPNEUMOVIRUS NOT DETECTED; INFLUENZA A- RESP PCR PANEL NOT DETECTED; INFLUENZA B - RESP PCR PANEL NOT DETECTED; M. PNEUMONIAE- RESP PCR PANEL NOT DETECTED; PARAINFLUENZA VIRUS 1 NOT DETECTED; PARAINFLUENZA VIRUS 2 NOT DETECTED; PARAINFLUENZA VIRUS 3 NOT DETECTED; PARAINFLUENZA VIRUS 4 NOT DETECTED; RHINOVIRUS/ENTEROVIRUS NOT DETECTED; RSV- RESP PCR PANEL NOT DETECTED; SARS-CoV-2 -RESP PCR PANEL NOT DETECTED
[2024-01-02] MEDS: iohexoL-300 100 ML VIAL IVP ONE (09:18)
[2024-01-02] MEDS: HYDROmorphone 1 MG/ML CARPUJECT IVP STA (09:35)
[2024-01-02] MEDS: cefTRIAXone 1 GM VIAL IVP STA (09:36)
--- NOTE | 2024-01-02 09:37 | CT Report ---
PROCEDURE: Abdomen/Pelvis W INDICATIONS: Abdominal pain, vomiting x 3 days CONTRAST: 100ml omni 300 TECHNIQUE: After the administration of intravenous contrast, a CT scan of the abdomen and pelvis was performed. Images were recorded and evaluated at appropriate window settings. Reformats: coronal and sagittal. F or radiation dose reduction, the following was used: automated exposure control, adjustment of mA and /or kV according to patient size. COMPARISON: None. FINDINGS: Image quality: Diagnostic Lower chest: Basal scarring and atelectasis. Mild esophageal wall thickening, nonspecific appearance. Normal heart size where visualized Liver: Unremarkable. Suspected left lobe liver cyst. Gallbladder and biliary system: Unremarkable, nondilated allowing for patient's age. Pancreas: No ductal dilation Spleen: Nonenlarged. There is mild perisplenic fluid, nonspecific. Hypoattenuating inferior pole lesi on is usually a cyst or hemangioma, but indeterminate on single phase study. Consider follow-up if th ere is any primary history of malignancy. Adrenals: No discrete nodule Kidneys: No solid mass or hydronephrosis. Subcentimeter lesions are too small to characterize, usuall y cysts Vessels and lymph nodes: The main portal vein appears patent. No abdominal aortic aneurysm or patholo gic lymph nodes by size criteria. 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 Bowel and peritoneum: The appendix appears nondilated. Small bowel obstruction, obstructing point is in the right inguinal hernia. There is significant narrowing at the neck (4/42). Mild upstream small bowel dilation of the 3 cm. Nonspecific fat stranding is also seen surrounding th e colon. Trace pelvic free fluid. Mild rectal wall thickening. Body wall: Small bowel fluid is seen in the right inguinal hernia sac Pelvis: Bladder is unremarkable. Bones: No acute or suspicious osseous finding. There are degenerative changes. IMPRESSION: Small bowel obstruction secondary to a bowel containing right inguinal hernia. There is marked narrow ing at the neck, which can predispose to strangulation and ischemia. Small amount of fluid in the her woodrow sac and in the abdomen likely reactive. Correlate clinically for reducibility and consider surgic al consultation. Nonspecific and pericolonic fat stranding and rectal wall thickening, possibly additional infectious/ inflammatory proctocolitis. 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 Other findings as above. Reviewed by: Eladio Jane MD on 01/02/2024 9:35 AM PDT Approved by: Eladio Jane MD on 01/02/2024 9:35 AM PDT Station ID: [id number]
--- NOTE | 2024-01-02 10:47 | HISTORY & PHYSICAL EXAMINATION ---
HPI - Admitted From Admitted from: ED - History Obtained From History obtained from: Patient Exam limitations: No limitations - History of Present Illness HPI Comment/Other: 83yoF with 3d generalized malaise, abdominal discomfort, n/v. Initially went out to dinner thursday night and then began having emesis, however had no diarrhea and thus doubted food poisoning. Unable to tolerate even water yesterday. Last BM thursday before dinner. She was exposed to her son with covid a week or so ago, but her covid test in the ED is negative. No history of similar symptoms. PMH/PSH - Past Medical History Cardiovascular: positive: Hypertension, Murmur Respiratory: positive: None Neuro: positive: Head injury Endocrine/Autoimmune: positive: HyPOthyroidism GI: positive: None CREDIT RATING CHECKER: positive: None : positive: None HEENT: positive: Glaucoma, Other Psych: positive: Depression Musculoskeletal: positive: None Derm: positive: None MRSA Hx?: No - Past Surgical History General: positive: Other /CREDIT RATING CHECKER: positive: Hysterectomy HEENT: positive: Other Social & Family Hx - Living Situation Living Arrangement: At home Living Situation: Alone (ambulates independently, no assistive devices) - Social History Does the pt smoke?: No Smoking Status: Never smoker Does the pt drink ETOH?: Yes Does the pt have substance abuse?: No - POLST Patient has POLST: No Meds/Allgy - Home Medications Home Medications: Ambulatory Orders Medication Instructions Recorded Confirmed Aspirin [Aspir 81] 81 mg PO DAILY 01/11/14 01/02/24 Hydroxyzine HCl 10 mg ORAL HS 01/11/14 01/02/24 Triamterene/Hydrochlorothiazid 37.5 mg ORAL DAILY 01/11/14 01/02/24 [Triamterene-Hctz 37.5-25 mg Cp] Latanoprost 0.005% Ophth Drops 1 drops OP DAILY PM 01/02/24 01/02/24 [Xalatan Ophth Drops] timoloL 0.5% OPHTH DROPS(10ML) 0 drops OP BID 01/02/24 01/02/24 [Timoptic 0.5% Ophth Drops] - Allergies Allergies/Adverse Reactions: Allergies Allergy/AdvReac Type Severity Reaction Status Date / Time No Known Drug Allergies Allergy Verified 01/02/24 08:02 Review of Systems - Constitutional Constitutional: reports: Fatigue, Malaise, Poor appetite - Gastrointestinal Gastrointestinal: reports: Abdominal pain, Constipation, Nausea, Vomiting Exam - Vital Signs Vital Signs: Vital Signs x48h Temp Pulse Resp BP Pulse Ox 01/02/24 10:20 81 16 148/67 H 98 01/02/24 08:29 85 16 140/82 H 97 01/02/24 08:03 36.7 C 84 18 130/62 100 Results - Lab Results Lab results reviewed: Yes Fish Bones: 01/02/24 08:13 01/02/24 08:13 Other Lab Results: Lab Results x24hrs 01/02/24 01/02/24 01/02/24 Range/Units 09:37 08:15 08:15 WBC (4.8-10.8) x10^3/uL RBC (4.20-5.40) 10^6/uL Hgb (12.0-16.0) g/dL Hct (37.0-47.0) % MCV (81.0-99.0) fL MCH (27.0-31.0) pg MCHC (32.0-36.0) g/dL RDW (12.0-15.0) % Plt Count (130-450) 10^3/uL MPV (7.9-10.8) fL Neut # (Auto) (1.5-6.6) 10^3/uL Lymph # (Auto) (1.5-3.5) 10^3/uL [place] # (Auto) (0.0-1.0) 10^3/uL Eos # (Auto) (0.0-0.7) 10^3/uL Baso # (Auto) (0.0-0.1) 10^3/uL Absolute Nucleated RBC x10^3/uL Nucleated RBC % /100WBC Sodium (135-145) mmol/L Potassium (3.5-4.5) mmol/L Chloride (101-111) mmol/L Carbon Dioxide (21-32) mmol/L Anion Gap (6-13) BUN (6-20) mg/dL Creatinine (0.6-1.3) mg/dL Estimated GFR (MDRD) (>89) Glucose (74-104) mg/dL Lactic Acid 1.6 (0.5-2.2) mmol/L Calcium (8.5-10.3) mg/dL Phosphorus (2.5-5.0) mg/dL Magnesium (1.7-2.3) mg/dL Total Bilirubin (0.2-1.0) mg/dL AST (10-42) IU/L ALT (10-60) IU/L Alkaline Phosphatase (42-121) IU/L Total Protein (6.4-8.9) g/dL Albumin (3.2-5.5) g/dL Globulin (2.1-4.2) g/dL Albumin/Globulin Ratio (1.0-2.2) Lipase (11-82) U/L Urine Color YELLOW Urine Clarity CLEAR (CLEAR) Urine pH 6.0 (5.0-7.5) PH Ur Specific [place] >=1.030 H (1.002-1.030) Urine Protein NEGATIVE (NEGATIVE) mg/dL Urine Glucose (UA) NEGATIVE (NEGATIVE) mg/dL Urine Ketones 40 H (NEGATIVE) mg/dL Urine Occult Blood NEGATIVE (NEGATIVE) Urine Nitrite NEGATIVE (NEGATIVE) Urine Bilirubin MODERATE H (NEGATIVE) Urine Urobilinogen 0.2 (NORMAL) (NORMAL) E.U./dL Ur Leukocyte Esterase TRACE H (NEGATIVE) Urine RBC None Seen (0-5) /HPF Urine WBC 6-10 H (0-5) /HPF Ur Squamous Epith Cells FEW Squamous (<= Few) Urine Bacteria Many H (None Seen) /HPF Ur Microscopic Review INDICATED Urine Culture Comments INDICATED Nasal Adenovirus (PCR) NOT DETECTED Nasal B. parapertussis DNA (PCR) NOT DETECTED Nasal Coronavir 229E PCR NOT DETECTED Nasal Coronavir HKU1 PCR NOT DETECTED Nasal Coronavir NL63 PCR NOT DETECTED Nasal Coronavir OC43 PCR NOT DETECTED Nasal Enterovir/Rhinovir PCR NOT DETECTED Nasal Influenza B PCR NOT DETECTED Nasal Influenza A PCR NOT DETECTED Nasal Parainfluen 1 PCR NOT DETECTED Nasal Parainfluen 2 PCR NOT DETECTED Nasal Parainfluen 3 PCR NOT DETECTED Nasal Parainfluen 4 PCR NOT DETECTED Nasal RSV (PCR) NOT DETECTED Nasal B.pertussis DNA PCR NOT DETECTED Nasal C.pneumoniae (PCR) NOT DETECTED Dashawn Human Metapneumo PCR NOT DETECTED Nasal M.pneumoniae (PCR) NOT DETECTED Nasal SARS-CoV-2 (PCR) NOT DETECTED 01/02/24 01/02/24 Range/Units 08:13 08:13 WBC 9.0 (4.8-10.8) x10^3/uL RBC 4.21 (4.20-5.40) 10^6/uL Hgb 13.7 (12.0-16.0) g/dL Hct 40.7 (37.0-47.0) % MCV 96.7 (81.0-99.0) fL MCH 32.5 H (27.0-31.0) pg MCHC 33.7 (32.0-36.0) g/dL RDW 12.2 (12.0-15.0) % Plt Count 210 (130-450) 10^3/uL MPV 9.9 (7.9-10.8) fL Neut # (Auto) 6.5 (1.5-6.6) 10^3/uL Lymph # (Auto) 1.4 L (1.5-3.5) 10^3/uL [place] # (Auto) 1.0 (0.0-1.0) 10^3/uL Eos # (Auto) 0.0 (0.0-0.7) 10^3/uL Baso # (Auto) 0.0 (0.0-0.1) 10^3/uL Absolute Nucleated RBC 0.00 x10^3/uL Nucleated RBC % 0.0 /100WBC Sodium 142 (135-145) mmol/L Potassium 3.5 (3.5-4.5) mmol/L Chloride 102 (101-111) mmol/L Carbon Dioxide 30 (21-32) mmol/L Anion Gap 10.0 (6-13) BUN 18 (6-20) mg/dL Creatinine 0.9 (0.6-1.3) mg/dL Estimated GFR (MDRD) 60 L (>89) Glucose 99 (74-104) mg/dL Lactic Acid (0.5-2.2) mmol/L Calcium 10.1 (8.5-10.3) mg/dL Phosphorus 3.4 (2.5-5.0) mg/dL Magnesium 1.9 (1.7-2.3) mg/dL Total Bilirubin 1.0 (0.2-1.0) mg/dL AST 16 (10-42) IU/L ALT 13 (10-60) IU/L Alkaline Phosphatase 48 (42-121) IU/L Total Protein 7.1 (6.4-8.9) g/dL Albumin 4.4 (3.2-5.5) g/dL Globulin 2.7 (2.1-4.2) g/dL Albumin/Globulin Ratio 1.6 (1.0-2.2) Lipase 16 (11-82) U/L Urine Color Urine Clarity (CLEAR) Urine pH (5.0-7.5) PH Ur Specific [place] (1.002-1.030) Urine Protein (NEGATIVE) mg/dL Urine Glucose (UA) (NEGATIVE) mg/dL Urine Ketones (NEGATIVE) mg/dL Urine Occult Blood (NEGATIVE) Urine Nitrite (NEGATIVE) Urine Bilirubin (NEGATIVE) Urine Urobilinogen (NORMAL) E.U./dL Ur Leukocyte Esterase (NEGATIVE) Urine RBC (0-5) /HPF Urine WBC (0-5) /HPF Ur Squamous Epith Cells (<= Few) Urine Bacteria (None Seen) /HPF Ur Microscopic Review Urine Culture Comments Nasal Adenovirus (PCR) Nasal B. parapertussis DNA (PCR) Nasal Coronavir 229E PCR Nasal Coronavir HKU1 PCR Nasal Coronavir NL63 PCR Nasal Coronavir OC43 PCR Nasal Enterovir/Rhinovir PCR Nasal Influenza B PCR Nasal Influenza A PCR Nasal Parainfluen 1 PCR Nasal Parainfluen 2 PCR Nasal Parainfluen 3 PCR Nasal Parainfluen 4 PCR Nasal RSV (PCR) Nasal B.pertussis DNA PCR Nasal C.pneumoniae (PCR) Dashawn Human Metapneumo PCR Nasal M.pneumoniae (PCR) Nasal SARS-CoV-2 (PCR) - Diagnostic Imaging Results Diagnostic Imaging Results: positive: Read contemporaneously Diagnostic Imaging Results Comments: CT abdomen/pelvis shows right inguinal hernia containing a loop of small bowel, with proximal SB dilation and distal SB decompression. Loop of incarcerated small bowel is without significant surrounding inflammation or fluid collection. Impression/Plan - Problem List Problem List: 83yoF with incarcerated right inguinal hernia containing loop of small bowel with associated small bowel obstruction. Unable to be reduced with relaxation in ED by ED doc. 3d emesis and no PO intake, however labs remarkably normal, WBC 9, chemistry normal, lactate 1.6. Relatively healthy non-smoking 83 year old who takes baby aspirin and HCTZ. Discussed nature of diagnosis and risks of incarcerated hernia (continued bowel obstruction and bowl necrosis if progresses to strangulation). Discussed recommended operative plan and risks of surgery to include pain, bleeding, infection, bowel resection, anastomotic leak, hernia recurrence, need for further procedures. She understands and agrees to proceed. - to OR now for emergent open right inguinal hernia repair, possible diagnostic laparoscopy, possible bowel resection. - plan for overnight stay, with evaluation for safe discharge home tomorrow (lives alone, 2 sons in [place]) - EKG and CXR in ED before OR Lucy Guzmán DO, FACS General Surgeon
[2024-01-02] MEDS ORDERED: BUPIVACAINE 0.25% PF 30 ML VIAL ONE (11:02)
--- NOTE | 2024-01-02 11:12 | XRAY Report ---
PROCEDURE: Chest 1V INDICATIONS: chest pain TECHNIQUE: One view of the chest was acquired. COMPARISON: None. FINDINGS: Surgical changes and devices: None. Lungs and pleura: No dense consolidation or pleural effusion. Mediastinum: Aortic calcifications. Normal heart size allowing for portable technique. Prominent nathanael earance of the right hilum, indeterminate on radiography. Bones and chest wall: Degenerative changes IMPRESSION: Limited single view radiograph without acute abnormality. Reviewed by: Eladio Jane MD on 01/02/2024 11:10 AM PDT Approved by: Eladio Jane MD on 01/02/2024 11:10 AM PDT Station ID: [id number]
[2024-01-02] MEDS ORDERED: LIDOCAINE-PF 2% 10 ML AMP SUBQ ONE (11:13)
[2024-01-02] MEDS ORDERED: ROCURONIUM 50 MG/5 ML VIAL ONE ×2 (11:13→13:12)
[2024-01-02] MEDS ORDERED: PROPOFOL 200 MG/20 ML VIAL IVP ONE (11:13)
[2024-01-02] MEDS ORDERED: ONDANSETRON 4 MG/2 ML VIAL ONE (11:13)
[2024-01-02] MEDS ORDERED: fentaNYL 100 MCG/2 ML VIAL ONE ×2 (11:13→14:50)
[2024-01-02] MEDS ORDERED: MORPHINE 2 MG/ML CARPUJECT IVP PRN (11:25)
[2024-01-02] MEDS ORDERED: ePHEDrine 50 MG/ML VIAL IVP PRN (11:25)
[2024-01-02] MEDS ORDERED: fentaNYL 100 MCG/2 ML VIAL IVP PRN (11:25)
[2024-01-02] MEDS ORDERED: NALOXONE 0.4 MG/ML VIAL IVP PRN (11:25)
[2024-01-02] MEDS ORDERED: HYDROmorphone 0.5 MG/0.5 ML SYRINGE IVP PRN (11:25)
[2024-01-02] MEDS ORDERED: ATROPINE ABBOJECT 1 MG/10 ML SYRINGE IVP PRN (11:25)
[2024-01-02] MEDS ORDERED: ONDANSETRON 4 MG/2 ML VIAL IVP PRN ×2 (11:25→15:23)
--- NOTE | 2024-01-02 11:25 | ANESTHESIA ---
Pre-Anesthesia VS, & Labs - Diagnosis incarcerated inguinal hernia - Procedure open incisional hernia repair, possible laproscopic Vital Signs: Temp Pulse Resp BP Pulse Ox O2 Flow Rate 36.7 C 81 16 148/67 H 98 01/02/24 08:03 01/02/24 10:20 01/02/24 10:20 01/02/24 10:20 01/02/24 10:20 Height: 5 ft Weight (kg): 57.4 kg Body Mass Index: 24.7 BMI Classification: Normal - NPO >8 hours - Is Patient ?: No - Lab Results Current Lab Results: Laboratory Tests 01/02/24 09:37: Lactic Acid 1.6 01/02/24 08:13: Sodium 142, Potassium 3.5, Chloride 102, Carbon Dioxide 30, Anion Gap 10.0, BUN 18, Creatinine 0.9, Estimated GFR (MDRD) 60 L, Glucose 99, Calcium 10.1, Phosphorus 3.4, Magnesium 1.9, Total Bilirubin 1.0, AST 16, ALT 1 3, Alkaline Phosphatase 48, Total Protein 7.1, Albumin 4.4, Globulin 2.7, Albumin/Globulin Ratio 1.6, Lipase 16 01/02/24 08:13: WBC 9.0, RBC 4.21, Hgb 13.7, Hct 40.7, MCV 96.7, MCH 32.5 H, MCHC 33.7, RDW 12.2, Plt Count 210, MPV 9.9, Neut # (Auto) 6.5, Lymph # (Auto) 1.4 L, [place] # (Auto) 1.0, Eos # (Auto) 0.0, Baso # (Auto) 0.0, Absolute Nucleated RBC 0.00, Nucleated RBC % 0.0 Fish Bones: 01/02/24 08:13 01/02/24 08:13 Home Medications and Allergies Home Medications: Ambulatory Orders Latanoprost 0.005% Ophth Drops [Xalatan Ophth Drops] 1 drops OP DAILY PM 01/02/24 timoloL 0.5% OPHTH DROPS(10ML) [Timoptic 0.5% Ophth Drops] 0 drops OP BID Aspirin [Aspir 81] 81 mg PO DAILY 01/11/14 Hydroxyzine HCl 10 mg ORAL HS 01/11/14 Triamterene/Hydrochlorothiazid [Triamterene-Hctz 37.5-25 mg Cp] 37.5 mg ORAL DAILY 01/11/14 Latanoprost 0.005% Ophth Drops [Xalatan Ophth Drops] 1 drops OP DAILY PM 01/02/24 timoloL 0.5% OPHTH DROPS(10ML) [Timoptic 0.5% Ophth Drops] 0 drops OP BID 01/02/24 Allergies/Adverse Reactions: Allergies Allergy/AdvReac Type Severity Reaction Status Date / Time No Known Drug Allergies Allergy Verified 01/02/24 08:02 Anes History & Medical History - Anesthetic History Anesthesia Complications: reports: No previous complications Family history of Anesthesia Complications: Denies Family history of Malignant Hyperthermia: Denies - Medical History Cardiovascular: reports: Hypertension, Murmur Pulmonary: reports: None Gastrointestinal: reports: None Urinary: reports: None Neuro: reports: Head injury Musculoskeletal: reports: None Endocrine/Autoimmune: reports: HyPOthyroidism Blood Disorders: reports: None Skin: reports: None Smoking Status: Never smoker Psychosocial: reports: No issues indicated History of Cancer?: No - Surgical History General: reports: Other Eyes Ears Nose Throat (EENT): reports: Other (partial thyroidectomy) Gynecologic: reports: Hysterectomy Exam General: Alert, Oriented x3, Cooperative Dental: WNL Mouth Openin Fingerbreadth Neck Mobility: Normal Mallampati classification: I Thyromental Distance: 4-6 cm Respiratory: Lungs clear Cardiovascular: Regular rate Plan Anesthesia Type: General Consent for Procedure(s) Verified and Reviewed: Yes Code Status: Attempt Resuscitation ASA classification: 2-Mild systemic disease Is this case an emergency?: Yes
[2024-01-02] MEDS ORDERED: LACTATED RINGERS 1,000 ML IV SCH (12:00)
[2024-01-02] MEDS ORDERED: ceFAZolin 1 GM VIAL ONE (12:08)
[2024-01-02] MEDS ORDERED: ACETAMINOPHEN 1,000 MG/100 ML 1,000 MG/100 ML BAG IV ONE (12:13)
[2024-01-02] MEDS ORDERED: ePHEDrine 50 MG/ML VIAL IVP ONE (12:16)
[2024-01-02] MEDS: BUPIVACAINE 0.25% PF 30 ML VIAL SUBQ ONE ×2 (12:24)
[2024-01-02] MEDS ORDERED: METHYLENE BLUE 0.5% 50 MG/10 ML AMPULE ONE (14:01)
[2024-01-02] MEDS: METHYLENE BLUE 0.5% 50 MG/10 ML AMPULE IR ONE (14:15)
[2024-01-02] MEDS ORDERED: SUGAMMADEX 200 MG/2 ML VIAL IVP ONE (15:03)
--- NOTE | 2024-01-02 15:21 | OPERATIVE REPORT ---
Operative Report - General Admit Date: 01/02/24 Planned Procedure: open right inguinal hernia repair, possible diagnostic laparoscopy Pre-Op Diagnosis: incarcerated right inguinal hernia, small bowel obstruction Procedure Performed: open right femoral hernia repair, diagnostic laparoscopy Post Op Diagnosis: incarcerated right inguinal hernia, small bowel obstruction - Procedure Note Primary Surgeon: Lucy Guzmán DO Anesthesia Provider: Julia Lopes Anesthesia Technique: General ET tube Pathology: right femoral hernia sac IV Fluids (mL): 1,200 Estimated Blood Loss (mL): 20 Urine Output (mL): 150 Indications: 83yoF with 3d n/v and CT scan showing right inguinal hernia showing small bowel loop with proximally dilated small bowel Findings: right femoral hernia space with incarcerated peritoneal hernia sac, knuckle of bowel that was incarcerated was reduced spontaneously upon induction, bruised but viable jejunal "knuckle" was visualized running the bowel, no bowel necrosis or perforation, thus no bowel resected. Methylene blue instilled into the bladder to rule out bladder contained within hernia. Polypropylene mesh placed with transition stitch (2-0 prolene) to close femoral space. Complications: None - Other Other Information/Narrative: THe patient was brought to the operating room and placed supine on the table with left arm tucked. General anesthesia with ETT was induced and a stevens was placed. The abdomen was prepped and draped. A timeout was performed. An incision was made of the right groin overlying the inguinal canal. The soft tissues, scarpas fascia and the external oblique aponeurosis were opened. A subcutaneous vein was suture ligated with 3-0 silk. An incarcerated hernia was identified, and was clearly protruding through the femoral defect, with the hernia contents visible inferior the the inguinal ligament and not within the inguinal canal. There was no internal hernia; the inguinal floor/direct space was weakened but not the site of the incarcerated hernia. Gentle pressure on the hernia contents did not achieve reduction. THe contents appeared as densely indurated yellow fat; it was unclear if this was bowel mesentery, preperitoneal fat, or lymph nodes, and thus I proceede with diagnostic laparoscopy to better assess the nature of the hernia. The abdomen was entered and insufflated with a veress needle at [facility], followed by optiview entry with a 5-0 laparoscope at the same site. The right groin was inspected laparoscopically and a dimple of peritoneum herniated in the femoral space was visualized - the defect had a very small neck and the hernia sac was pinched tightly, a laparoscopic grasper could NOT be pushed through the hernia defect/into the sac. There was no bowel extending into the defect or even adherent the the adjacent peritoneum; there was no purulent, feculant, or hemorrhagic fluid observed in the peritoneum. A second 5mm trocar was placed under direct visualization along the left hemiabdomen. Using a grasper, I tried to pull on the hernia sac to reduce it, I also tried to pull laparoscopically at the same time as pushing from the open groin incision, and I was unable to reduce the indurated hernia sac. I considered that the hernia contents could be bladder, although the preoperative CT did not suggest this, and thus I instilled methylene blue (1cc in 60cc NS) into the stevens and NO blue was visible in the hernia sac. Satisfied that the hernia contents were simply either preperitoneal fat, indur ated peritoneum, or lymph node, and still unable to reduce it via the right neck, the hernia sac was highly ligated as close to the neck from the open approach as possible using 2-0 silk suture. The amputated distal sac was confirmed to be simply indurated peritoneum with a small amount of associated preperitoneal fat. A third laparoscopic trocar was placed at the umbilical position in order to run the bowel. THe bowel was then run laparoscopically from the cecum to the ligament of treitz, and a single knuckle of jejunum had an erythematous appearance, clearly the portion of bowel that had been in the hernia, and I presume spontaneously reduced upon anesthetic induction. The bowel was completely viable. The trocars were then removed and laparoscopic portion concluded. The umbilical fascia was closed with a 0 vicryl figure of eight, the skin at all three laparoscopic sites was closed with 4-0 subcuticular monocryl. Attention was then directed at repairing the inguinal hernia. A polypropylene mesh was placed, and secured to the pubic tubercle using 2-0 prolene. The 2-0 prolene was then used to sew the mesh into place on all sides, using a transition stitch along the shelving edge to close the femoral space. The external oblique and scarpas fascia were closed with 2-0 Vicryl suture. The skin was closed with 3-0 vicryl deep dermal and 4-0 moncryl subcuticular suture. All incisions were dressed with steristrips, gauze and tegederm. The patient was awoken from anesthesia, the stevens was removed, there were no complications. SHe was transferred to the PACU in good condition. Lucy Guzmán DO, FACS General Surgeon
[2024-01-02] MEDS ORDERED: SODIUM CHLORIDE FLUSH 0.9% 10 ML SYRINGE IVP PRN (15:23)
[2024-01-02] MEDS: LACTATED RINGERS 1,000 ML IV ONE (15:24)
[2024-01-02] MEDS: LACTATED RINGERS 1,000 ML IV SCH (16:16)
[2024-01-02] MEDS: SODIUM CHLORIDE FLUSH 0.9% 10 ML SYRINGE IVP SCH (16:16)
[2024-01-02] MEDS: ACETAMINOPHEN 1,000 MG/100 ML 1,000 MG/100 ML BAG IV SCH (21:34)
--- NOTE | 2024-01-03 00:23 | ANESTHESIA POST OP EVALUATION ---
Anesthesia Post Eval - Post Anesthesia Eval Vitals: Last Vital Signs Temp 36.7 C 01/02/24 21:00 Pulse 87 01/02/24 21:00 Resp 18 01/02/24 21:00 BP 130/68 01/02/24 21:00 Pulse Ox 94 01/02/24 21:00 O2 Flow Rate CV Function Including HR & BP: Stable Pain Control: Satisfactory Nausea & Vomiting: Negative Mental Status: Baseline Respiratory Status: Airway Patent Hydration Status: Satisfactory Anesthesia Complications: None
[2024-01-03] MEDS: HYDROmorphone 1 MG/ML CARPUJECT IVP PRN (04:34)
[2024-01-03 06:22] LABS: BASOPHILS % (AUTO) 0.5 %; EOSINOPHILS # (AUTO) 0.1 10^3/uL (0.0-0.7); HCT - HEMATOCRIT 33.8 % (37.0-47.0); HGB - HEMOGLOBIN 10.9 g/dL (12.0-16.0); LYMPHOCYTES # (AUTO) 0.8 10^3/uL (1.5-3.5); LYMPHOCYTES % (AUTO) 13.7 %; MEAN CORPUSCULAR HEMOGLOBIN 32.2 pg (27.0-31.0); MEAN CORPUSCULAR HGB CONC 32.2 g/dL (32.0-36.0); MEAN CORPUSCULAR VOLUME 99.7 fL (81.0-99.0); MEAN PLATELET VOLUME 10.4 fL (7.9-10.8); MONOCYTES # (AUTO) 1.1 10^3/uL (0.0-1.0); MONOCYTES % (AUTO) 18.6 %; NEUTROPHILS % (AUTO) 64.9 %; PLT - PLATELET COUNT 148 10^3/uL (130-450); RED BLOOD COUNT 3.39 10^6/uL (4.20-5.40); RED CELL DISTRIBUTION WIDTH 12.3 % (12.0-15.0); WHITE BLOOD COUNT 6.1 x10^3/uL (4.8-10.8)
[2024-01-03 06:54] LABS: CALCIUM 8.5 mg/dL (8.5-10.3); CREATININE 0.7 mg/dL (0.6-1.3); MAGNESIUM 1.6 mg/dL (1.7-2.3); PHOSPHORUS 2.8 mg/dL (2.5-5.0); POTASSIUM 3.1 mmol/L (3.5-4.5)
[2024-01-03] MEDS ORDERED: oxyCODONE 5 MG TABLET PO PRN (10:15)
[2024-01-03] MEDS: TRIAMT/HCTZ 37.5 MG/25 MG CAPSULE PO SCH (10:39)
[2024-01-03] MEDS: CELECOXIB 100 MG CAPSULE PO SCH (10:39)
[2024-01-03] MEDS: POTASSIUM CHLORIDE 20 MEQ TABLET PO ONE (10:39)
[2024-01-03] MEDS: MAGNESIUM SULFATE 1 GM in SODIUM CHLORIDE 0.9% 50 ML IV ONE (10:56)
[2024-01-03] MEDS: ACETAMINOPHEN 500 MG TABLET PO SCH (12:22)
--- NOTE | 2024-01-03 13:38 | PHARMACY PROGRESS NOTE ---
- Best Possible Medication History Admit Date and Time: 01/02/24 1523 Processed by: Pharmacy Medications reviewed in ED?: Yes Medication History completed: Yes Patient Interview: Pt unable to participate Secondary Source(s): Pharmacy records, Insurance records As the person ultimately responsible for medication therapy, providers are able to order a medication from an existing home medication list in [facility] via the "Reconcile Routine" prior to Confirmation of that medication by technical customer support specialist. Such practice is discouraged except when the physician, in their clinical judgment, deems that a medical need exists for a medication without regard to previous use.
[2024-01-03] MEDS: HEPARIN 5,000 UNIT/ML VIAL SUBQ SCH (14:12)
--- NOTE | 2024-01-03 20:05 | PROVIDER PROGRESS NOTE ---
Subjective - General Admit Date: 01/02/24 Procedure Date: 01/02/24 Post Op Days: 1 Procedure Performed: open repair of incarcerated right femoral hernia, diagnostic laparoscopy - Review of Systems Wound/Incisions: positive: Healing well Drain Type: none - Other Other Information/Narrative: No acute events, tolerating clear liquids and has appetite for regular diet, passing some flatus. Has more pain this morning that immediately postop - discussed that local likely wearing off. Has not yet ambulated, used bedside commode to void (no issues, urine yellow after intraoperative methylene blue). Objective - Patient Data Reviewed Vital Signs: Yes Vital Signs: Vital Signs x48h Temp Pulse Resp BP Pulse Ox 01/03/24 15:58 36.8 C 74 18 114/59 L 95 01/03/24 12:53 36.7 C 85 18 123/54 L 94 Weight: Weight 01/01/24 01/02/24 01/03/24 23:59 23:59 23:59 Weight (kg) 57.4 kg 57.4 kg Intake & Output: Intake and Output Totals x24h 01/01/24 01/02/24 01/03/24 23:59 23:59 23:59 Intake Total 2085 2825.333 Output Total 175 360 Balance 1910 2465.333 - Lab Results Lab Results: 01/03/24 06:00 01/03/24 06:00 Other Lab Results: Lab Results x24hrs 01/03/24 01/03/24 Range/Units 06:00 06:00 WBC 6.1 (4.8-10.8) x10^3/uL RBC 3.39 L (4.20-5.40) 10^6/uL Hgb 10.9 L (12.0-16.0) g/dL Hct 33.8 L (37.0-47.0) % MCV 99.7 H (81.0-99.0) fL MCH 32.2 H (27.0-31.0) pg MCHC 32.2 (32.0-36.0) g/dL RDW 12.3 (12.0-15.0) % Plt Count 148 (130-450) 10^3/uL MPV 10.4 (7.9-10.8) fL Neut # (Auto) 4.0 (1.5-6.6) 10^3/uL Lymph # (Auto) 0.8 L (1.5-3.5) 10^3/uL [place] # (Auto) 1.1 H (0.0-1.0) 10^3/uL Eos # (Auto) 0.1 (0.0-0.7) 10^3/uL Baso # (Auto) 0.0 (0.0-0.1) 10^3/uL Absolute Nucleated RBC 0.00 x10^3/uL Nucleated RBC % 0.0 /100WBC Sodium 139 (135-145) mmol/L Potassium 3.1 L (3.5-4.5) mmol/L Chloride 105 (101-111) mmol/L Carbon Dioxide 28 (21-32) mmol/L Anion Gap 6.0 (6-13) BUN 11 (6-20) mg/dL Creatinine 0.7 (0.6-1.3) mg/dL Estimated GFR (MDRD) 80 L (>89) Glucose 92 (74-104) mg/dL Calcium 8.5 (8.5-10.3) mg/dL Phosphorus 2.8 (2.5-5.0) mg/dL Magnesium 1.6 L (1.7-2.3) mg/dL - Current Medications Current Medications: Current Medications Generic Name Dose Route Start Last Admin Trade Name Freq PRN Reason Stop Dose Admin Acetaminophen 500 mg 01/03/24 12:00 01/03/24 17:32 Acetaminophen 500 Mg Tablet PO 500 mg Q6HR FERNANDEZ Administration Celecoxib 100 mg 01/03/24 11:00 01/03/24 10:39 Celecoxib 100 Mg Capsule PO 100 mg BID FERNANDEZ Administration Heparin Sodium (Porcine) 5,000 unit 01/03/24 14:00 01/03/24 14:12 Heparin 5,000 Unit/Ml Vial SUBQ 5,000 unit TID FERNANDEZ Administration Hydromorphone HCl 0.2 mg 01/02/24 15:23 01/03/24 04:34 Hydromorphone 1 Mg/Ml Carpuject IVP 0.2 mg Q2HR PRN Administration Severe Pain (Level 7-10) Sodium Chloride 10 ml 01/02/24 17:00 01/03/24 17:32 Sodium Chloride Flush 0.9% 10 Ml Syringe IVP 10 ml 0100,0900,1700 FERNANDEZ Administration Triamterene/Hydrochlorothiazide 1 cap 01/03/24 11:00 01/03/24 10:39 Triamt/Hctz 37.5 Mg/25 Mg Capsule PO 1 cap DAILY FERNANDEZ Administration - Physical Exam Wound/Incisions: positive: Dressing dry and intact General Appearance: positive: No acute distress Respiratory: positive: Chest non-tender, No respiratory distress Cardiovascular: positive: Regular rate & rhythm Abdomen: positive: Tenderness (about incisions as expected, no diffuse ttp) Skin: positive: Color nml Extremities: positive: Non-tender Neurologic/Psychiatric: positive: Oriented x3, Mood/affect nml ABX Reporting Has patient been on IV antibiotics over the past 48 hours?: No Impression/Plan - Problem List Problem List: 83yoF POD1 s/p open right femoral hernia repair and diagnostic laparoscopy for incarcerated bowel containing hernia with small bowel obstruction - bowel reduced upon induction and was bruised but viable; peritoneal sac remained incarcerated and had to be excised; polypropylene mesh placed with transition stitch to close the femoral defect. Overall recovering well, tolerating clear liquids on morning rounds and passing some flatus. HD normal with good UOP, unremarkable CBC, low K/Mg on chemistry but normal creatinine. Needs improved pain control and trial of ambulation before discharge - advance to regular diet and DC IVF - K/Mg repletion - pain control: scheduled PO tylenol, celebrex, prn po oxycodone and IV dilaudid - home HCTZ - start heparin ppx Dispo: goal DC home tomorrow if pain well controlled and ambulating independently safely. Lucy Mcdonough DO FACS General SUrgeon
[2024-01-04 05:33] LABS: BASOPHILS % (AUTO) 0.4 %; EOSINOPHILS # (AUTO) 0.1 10^3/uL (0.0-0.7); EOSINOPHILS % (AUTO) 2.8 %; HCT - HEMATOCRIT 32.5 % (37.0-47.0); HGB - HEMOGLOBIN 10.6 g/dL (12.0-16.0); LYMPHOCYTES # (AUTO) 1.2 10^3/uL (1.5-3.5); LYMPHOCYTES % (AUTO) 24.4 %; MEAN CORPUSCULAR HEMOGLOBIN 32.1 pg (27.0-31.0); MEAN CORPUSCULAR HGB CONC 32.6 g/dL (32.0-36.0); MEAN CORPUSCULAR VOLUME 98.5 fL (81.0-99.0); MEAN PLATELET VOLUME 10.7 fL (7.9-10.8); MONOCYTES # (AUTO) 0.9 10^3/uL (0.0-1.0); MONOCYTES % (AUTO) 18.7 %; NEUTROPHILS # (AUTO) 2.7 10^3/uL (1.5-6.6); NEUTROPHILS % (AUTO) 53.5 %; PLT - PLATELET COUNT 142 10^3/uL (130-450); RED CELL DISTRIBUTION WIDTH 11.9 % (12.0-15.0)
[2024-01-04 05:40] LABS: MAGNESIUM 1.7 mg/dL (1.7-2.3)
[2024-01-04 05:45] LABS: CALCIUM 8.6 mg/dL (8.5-10.3); CREATININE 0.7 mg/dL (0.6-1.3); PHOSPHORUS 2.2 mg/dL (2.5-5.0); POTASSIUM 3.1 mmol/L (3.5-4.5)
[2024-01-04 07:57] VITALS: BP 158/79; O2SAT 95
[2024-01-04] MEDS: POTASSIUM CHLORIDE 20 MEQ TABLET PO SCH (08:38)
--- NOTE | 2024-01-04 09:29 | DISCHARGE SUMMARY ---
"Discharge Summary Admit Date: 01/02/24 Discharge Date: 01/04/24 Discharging Provider: Lucy Guzmán DO Code Status: Attempt Resuscitation Condition at Discharge: Good Discharge Disposition: 01 Home, Self Care - DIAGNOSES Admission Diagnoses: 1. incarcerated right inguinal hernia, 2. small bowel obstruction. Discharge Diagnoses with Status of Each Condition: 1. incarcerated right femoral hernia - repaired/resolved 2. small bowel obstruction - resolved - CONSULTS | PROCEDURES Procedures: 1. open right femoral hernia repair 2. Diagnostic laparoscopy - HOSPITAL COURSE Hospital Course: The patient was taken to the Operating room from the emergency room for incarcerated right inguinal hernia. She underwent an open right groin exploration which demonstrated an incarcerated right femoral hernia, as well as a diagnostic laparoscopy which demonstrated a viable loop of small bowel which had been within the hernia. The bowel was reduced and the hernia sac was resected, and the hernia was repairs with mesh to include closure of the femoral space. Postoperatively the patient was observed, was advanced to a regular diet with passage of flatus, her pain was well controlled on oral medication, she was hemodynamically stable, and able to ambulate and void at baseline. She was discharged to home on the morning of POD2. - ALLERGIES Allergies/Adverse Reactions: Allergies Allergy/AdvReac Type Severity Reaction Status Date / Time No Known Drug Allergies Allergy Verified 01/02/24 08:02 - MEDICATIONS Home Medications: Ambulatory Orders Medication Instructions Recorded Confirmed Aspirin [Aspir 81] 81 mg PO DAILY 01/11/14 01/02/24 Hydroxyzine HCl 10 mg ORAL HS 01/11/14 01/02/24 Triamterene/Hydrochlorothiazid 0.5 tab ORAL DAILY 01/11/14 01/03/24 [Triamterene-Hctz 37.5-25 mg Cp] Latanoprost 0.005% Ophth Drops 1 drops OP DAILY PM 01/02/24 01/02/24 [Xalatan Ophth Drops] timoloL 0.5% OPHTH DROPS(10ML) 1 drops EACHEYE BID 01/02/24 01/03/24 [Timoptic 0.5% Ophth Drops] - PHYSICAL EXAM AT DISCHARGE General Appearance: positive: No acute distress Eyes Bilateral: positive: Normal inspection ENT: positive: ENT inspection nml Neck: positive: Nml inspection Respiratory: positive: Chest non-tender, No respiratory distress Cardiovascular: positive: Regular rate & rhythm Abdomen: positive: Tenderness (appropriate periincisional tenderness). negative: No distention, Guarding, Rebound Skin: positive: Color nml Extremities: positive: Non-tender Neurologic/Psychiatric: positive: Oriented x3 - LABS Result Diagrams: 01/04/24 04:52 01/04/24 04:52 - FOLLOW UP Follow Up: 2 weeks in general surgery clinic - TIME SPENT Time Spent in Discharge (Minutes): 30"
== END 2024-01-04 10:05 | disposition home or self-care (01) ==
LOC: EDUNIT# → EDSEX → ED 07:56 → SDS 10:45 → MS2 13:07 → SDS 15:22 → MS2 15:23
PROVIDERS: ADMIT Surgery; ATTEND Surgery
PROC: 0YQ70ZZ Repair Right Femoral Region, Open Approach (ICD-10-PCS; principal; 2024-01-02 11:30)
DX: K41.30 Unilateral femoral hernia, with obstruction, without gangrene, not specified as recurrent (principal); K56.609 Unspecified intestinal obstruction, unspecified as to partial versus complete obstruction; I10 Essential (primary) hypertension; E03.9 Hypothyroidism, unspecified; H40.9 Unspecified glaucoma; R07.9 Chest pain, unspecified; Z11.52 Encounter for screening for COVID-19; Z11.59 Encounter for screening for other viral diseases; Z79.82 Long term (current) use of aspirin; Z79.899 Other long term (current) drug therapy; Z90.710 Acquired absence of both cervix and uterus
CPT/HCPCS: 36415; 49320; 49553; 71045; 74177; 80048; 80053; 81001; 83605; 83690; 83735; 84100; 85025; 87086; 87181; 87633; 93005; 96365; 96367; 96372; 96375; 96376; 99284; 99285; A9270; C1781; G0378; J0131; J1170; J7040; J7120; Q9967; 81003